=== PATIENT | male | born 1970 | race Caucasian/White ===

== ENCOUNTER → 2016-09-10 | Outpatient (CLI) | payer OTHER ==
[~2016-09-10] MED LIST: PERCOCET 325 MG1 TA3 PO; PHENERGAN 25MG.25 M1 PO
[2016-09-10 07:34] LABS: AEROMONAS NOT DETECTED (NOT DETECTE)
[2016-09-10 07:35] LABS: ASTROVIRUS NOT DETECTED (NOT DETECTE); CYCLOSPORA CAYETANENSIS NOT DETECTED (NOT DETECTE); E COLI O157 NOT DETECTED (NOT DETECTE); ENTEROAGGREGATIVE E COLI NOT DETECTED (NOT DETECTE); ENTEROPATHOGENIC E COLI NOT DETECTED (NOT DETECTE); ENTEROTOXIGENIC E COLI NOT DETECTED (NOT DETECTE); NOROVIRUS NOT DETECTED (NOT DETECTE); SHIGA-LIKE TOXIN PROD. E COLI NOT DETECTED (NOT DETECTE); SHIGELLA/ENTEROINVASIVE E COLI NOT DETECTED (NOT DETECTE); VIBRIO CHOLERAE NOT DETECTED (NOT DETECTE)
[2016-09-10 09:44] LABS: SAPOVIRUS DETECTED (NOT DETECTE)
== END ==
LOC: LAB 07:32
PROVIDERS: Internal Medicine
DX: K52.9 Noninfective gastroenteritis and colitis, unspecified (principal); R19.7 Diarrhea, unspecified

== ENCOUNTER → 2017-01-06 | Outpatient (CLI) | payer OTHER ==
--- NOTE | 2017-01-08 09:43 | RADIOLOGY REPORT PS360 ---
MRI-LOW EXT ANY JOINT W/O-LT MRI LEFT KNEE HISTORY: LEFT KNEE PAIN, LEFT KNEE EDEMA, KNEE STRAIN instability with bending past one year. Posterior knee pain. Tiny swallowing. Patient Age: 46 years: Male Ordering Physician: Sergio Gandara MD TECHNIQUE: Multiplanar multisequence imaging 1.5 MRI. COMPARISON :None FINDINGS Large joint effusion most evident at suprapatellar bursa. Bucket-handle LATERAL MENISCAL TEAR is most notable feature.. A very frayed and fragmented small residual posterior horn and posterior body. With prominent displaced meniscal fragment seen towards the notch, best seen on coronal image 18. Sagittal image 15. Borderline to mild chondral thinning at lateral femoral condyle. Medial meniscus tear . Suggestion of a subtle minimal horizontal tear involving the body and extending into the posterior horn of medial meniscus. Best seen on sagittal image 6 coronal image 18,19 and 20. Minor reactive bone changes reflecting early degenerative features along the medial margin medial tibial plateau. Borderline/mild chondral thinning.- Most evident towards the medial aspect of the medial compartment. Small subtle osteochondral signal irregularity focus at posterior aspect of medial femoral condyle also noted. ACL and PCL appear intact. Medial and lateral collateral ligaments appear intact A prominent irregularity at the tibial tubercle,; at the insertion of the patellar tendon. 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 I see no edema or distal features here currently.-Questionable be helpful here. No plain films available Patellofemoral joint appears intact. Cartilage along posterior patella appears intact. Satisfactory position of patella.. question possible plicae outlined by the large effusion suprapatella bursa region.-Equivocal. IMPRESSION...... 1. Prominent Lateral Meniscal Tear. Appears to be a large bucket-handle tear of lateral meniscus.; With small residual torn & fragmented posterior horn & posterior body medial meniscus 2. Minimal medial meniscal tear. Minimal Horizontal tear at the body and posterior horn 3. Very large joint effusion 4. Scant early degenerative changes most notable medial margin medial compartment . Borderline chondral thinning at medial and lateral compartment 5. 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 (. prominent low signal tissue here but no edema at this patellar tendon insertion region to suggest active process. Most likely old changes. Correlation with old versus recent plain film may be helpful in this regard, if patient tender here)
== END ==
LOC: RAD 15:50
DX: M25.562 Pain in left knee (principal); M25.462 Effusion, left knee

== ENCOUNTER → 2017-03-15 | Outpatient (CLI) | payer BC ==
[2017-03-15 13:09] LABS: HEMOGLOBIN 15.5 g/dL (14.1-18.0); LYMPH % 7.4 % (10-50)
[2017-03-15 14:30] LABS: BUN 18 mg/dL (7-18)
[2017-03-15 14:53] LABS: GFR (ESTIMATED) 65 ML/MIN (>60)
[2017-03-15 15:22] LABS: NEUTROPHILS 85 % (42-76)
== END ==
LOC: LAB 12:33
PROVIDERS: Orthopaedic Surgery
DX: Z96.652 Presence of left artificial knee joint (principal); L76.22 Postprocedural hemorrhage of skin and subcutaneous tissue following other procedure

== ENCOUNTER 2017-03-30 08:14 | Emergency (ER) | payer BC ==
[~2017-03-30] VITALS: Ht 185.4 cm; Wt 87.5 kg
--- OUTSIDE RECORDS SUMMARY | 2017-03-30 08:22 | External Medical Summary Rpt ---
Author Author [facility] Organization [facility] Address Unknown Phone Unavailable Care Team Providers Care Chief Controller Station Name Role Phone PADMAJA, (REF) PCP [phone] Encounter KRISTI FLORES [id number] Date(s): 03/13/17 - 03/14/17 [facility] [address] [place] [address]- [phone] Discharge Disposition: OP Self Care or Home Attending Physician: LANCE WINKLER MD-ORT Admitting Physician: LANCE WINKLER MD-ORT Referring Physician: LANCE WNIKLER MD-ORT Reason for Visit PAIN IN UNSPECIFIED KNEE Vital Signs Most recent 1 2 3 to oldest [Reference Range]: Temperature Temporal artery Temporal artery Temporal artery Source scanning (03/14/17 scanning (03/14/17 scanning (03/14/17 9:00 PM) 6:23 PM) 12:25 PM) Temperature Fahrenheit Fahrenheit Fahrenheit Mode (03/14/17 9:00 PM) (03/14/17 6:23 PM) (03/14/17 12:25 PM) Temperature, 98.0 Deg F 98.7 Deg F 98.5 Deg F Fahrenheit (03/14/17 9:00 PM) (03/14/17 6:23 PM) (03/14/17 12:25 [96.8-99.7 PM) Deg F] Clinical 36.7 Deg C 37.1 Deg C Temperature, (03/14/17 9:00 PM) (03/14/17 6:23 PM) C Pulse Rhythm Regular Regular (03/14/17 9:00 PM) (03/14/17 6:23 PM) Heart Rate, 85 bpm (03/14/17 Apical 12:25 PM) [60-100 bpm] Heart Rate 106 bpm 106 bpm 112 bpm Monitored *HI* *HI* *HI* [60-100 bpm] (03/14/17 9:00 PM) (03/14/17 8:45 PM) (03/14/17 8:30 PM) Respiratory 23 Breaths/Min 19 Breaths/Min 48 Breaths/Min Rate [14-20 *HI* (03/14/17 8:45 PM) *HI* Breaths/Min] (03/14/17 9:00 PM) (03/14/17 8:30 PM) Blood 144/90 mmHg 144/90 mmHg 161/93 mmHg Pressure *HI* *HI* *HI* [90-140/60-9 (03/14/17 9:00 PM) (03/14/17 8:45 PM) (03/14/17 8:30 PM) 0 mmHg] Mean 108 mmHg 108 mmHg 116 mmHg Arterial (03/14/17 9:00 PM) (03/14/17 8:45 PM) (03/14/17 8:30 PM) Pressure (MAP) Mean 111 111 110 Arterial (03/14/17 9:00 PM) (03/14/17 8:45 PM) (03/14/17 8:30 PM) Pressure (MAP)-BMDI Oxygen 95 % 94 % 96 % Saturation (03/14/17 9:00 PM) (03/14/17 8:45 PM) (03/14/17 8:30 PM) [94-100 %] Oxygen Room air Room air Room air Therapy Mode (03/14/17 9:00 PM) (03/14/17 8:45 PM) (03/14/17 8:30 PM) Oxygen Flow 2 Liter/Min 2 Liter/Min 2 Liter/Min Rate (03/14/17 6:30 PM) (03/14/17 6:25 PM) (03/14/17 6:23 PM) Height Stated (03/14/17 Source 12:47 PM) Height Entry [place] (03/14/17 Format 12:47 PM) Height/Lengt 74 Inch (03/14/17 h [place]AB[place] 12:47 PM) CLINICALHEIG 187.96 cm HT (03/14/17 12:47 PM) Weight Standing scale Standing scale Source (03/14/17 12:47 (03/14/17 12:26 PM) PM) Weight Entry [place] (03/14/17 [place] (03/14/17 Format 12:47 PM) 12:26 PM) Weight 191 lb (03/14/17 191 lb (03/14/17 [place] lb 12:47 PM) 12:26 PM) CLINICALWEIG 86.82 kg (03/14/17 86.82 kg (03/14/17 HT 12:47 PM) 12:26 PM) Body Surface 2.13 m2 (03/14/17 Area (BSA) 12:47 PM) Body Mass 24.6 kg/m2 Index [19-24 *HI*(03/14/17 kg/m2] 12:47 PM) [place] Body 81 kg (03/14/17 Weight 12:47 PM) Problem List Condition Effective Status Health Informant Dates Status HTN Active (hypertensio n)(Confirmed ) Allergies, Adverse Reactions, Alerts Substance Reaction Severity Status Percocet 10/325 Itching Active Medications amLODIPine (amLODIPine 10 mg oral tablet) 1 Tablet(s) Oral Every Day. Results BODY FLUID Most recent 1 2 to oldest [Reference Range]: Body Fluid Synovial Fl Synovial Fl Type (03/14/17 5:30 PM) (03/14/17 5:30 PM) Color BF Felicita *NA* (03/14/17 5:30 PM) Appearance Hazy BF (03/14/17 5:30 PM) Auto 1169 /uL WBC/Nucleate *HI* d Cells BF (03/14/17 5:30 PM) [0-1000 /uL] [place] [address] /uL [0-86555 *HI* /uL] (03/14/17 5:30 PM) Neutrophils 20 % Body Fluid *NA* (03/14/17 5:30 PM) Lymphocytes 23 % Body Fluid *LOW* [40-80 %] (03/14/17 5:30 PM) Monocytes 40 Body Fluid *NA* (03/14/17 5:30 PM) Macrophages 17 % Body Fluid *NA* (03/14/17 5:30 PM) Calcium Absent Pyrophosphat (03/14/17 5:30 PM) e Crystals [Absent] Crystal BF None Seen Other [None (03/14/17 5:30 PM) Seen] Monosodium Absent Urate (03/14/17 5:30 PM) Microbiology Reports TEST: Wound Culture STATUS: Order in Progress BODY SITE: Left Knee SOURCE: Surgical Swab COLLECTED DATE/TIME: 03/14/17 5:44 PMPRELIMINARY REPORTNo growthSTAIN REPORTNo organisms seen. No cells seen Immunizations No data available for this section Procedures Procedure Date Related Body Site Diagnosis Appendectomy colonoscopy exploratory laparoscopy left knee arthroscopy x 2 right wrist sx sinus surgery wisdom teeth extraction Social History Social History Response Type Smoking Status Never smoker Assessment and Plan No data available for this section Hospital Discharge Instructions Patient EducationKnee - Meniscus Injury, Arthroscopy, Care After
--- OUTSIDE RECORDS SUMMARY | 2017-03-30 08:22 | External Medical Summary Rpt ---
Author Author [facility] Organization [facility] Address Unknown Phone Unavailable Care Team Providers Care Drafter Engineering Name Role Phone SOL, (REF) PCP [phone] Encounter KRISTI FLORES [id number] Date(s): 02/17/17 - 02/17/17 [facility] [address] [place] [address]- Discharge Disposition: OP Self Care or Home Attending Physician: LANCE WINKLER MD-ORLillie Admitting Physician: LANCE WINKLER MD-ORLillie Referring Physician: LANCE WINKLER MD-ORLillie Reason for Visit CELLULITIS OF LEFT LOWER LIMB Vital Signs No data available for this section Problem List No data available for this section Allergies, Adverse Reactions, Alerts No data available for this section Medications No data available for this section Results BODY FLUID Most recent 1 2 to oldest [Reference Range]: Body Fluid Synovial Fl Synovial Fl Type (02/17/17 3:54 PM) (02/17/17 3:53 PM) Color BF Yellow (02/17/17 3:53 PM) Appearance Clear BF (02/17/17 3:53 PM) Auto 363 /uL WBC/Nucleate (02/17/17 3:53 PM) d Cells BF [0-1000 /uL] Auto RBC BF 2000 /uL [0-17274 (02/17/17 3:53 PM) /uL] Neutrophils 5 % Body Fluid *NA* (02/17/17 3:53 PM) Lymphocytes 49 % Body Fluid (02/17/17 3:53 PM) [40-80 %] Monocytes 46 Body Fluid *NA* (02/17/17 3:53 PM) Calcium Absent Pyrophosphat (02/17/17 3:54 PM) e Crystals [Absent] Monosodium Absent Urate (02/17/17 3:54 PM) Microbiology Reports TEST: Body Fluid Culture STATUS: Order in Progress BODY SITE: Left Knee SOURCE: Synovial Fluid COLLECTED DATE/TIME: 02/17/17 3:55 PMPRELIMINARY REPORTNo growthSTAIN REPORTNo organisms seen. Rare White Blood CellsTEST: Fungus Culture STATUS: Order in Progress BODY SITE: Knee SOURCE: Synovial Fluid COLLECTED DATE/TIME: 02/17/17 3:55 PMSTAIN REPORTNo Fungal elements seen Immunizations No data available for this section Procedures No data available for this section Social History No data available for this section Assessment and Plan No data available for this section Hospital Discharge Instructions No data available for this section
--- OUTSIDE RECORDS SUMMARY | 2017-03-30 08:22 | External Medical Summary Rpt ---
Author Author [facility]I [facility] Organization [facility] Address Unknown Phone Unavailable Care Team Providers Care Insurance Agent Name Role Phone SOL, (REF) PCP [phone] Encounter KRISTI FLORES [id number] Date(s): 02/17/17 - 02/17/17 [facility] [address] [place] [address]- [phone] Discharge Disposition: OP Self Care or Home [...] [0-1000 /uL] Auto RBC BF 2000 /uL [0-36652 (02/17/17 3:53 PM) /uL] Neutrophils 5 % [...]
--- OUTSIDE RECORDS SUMMARY | 2017-03-30 08:22 | External Medical Summary Rpt ---
Author Author [facility] Organization [facility] Address Unknown Phone Unavailable Care Team Providers Care Manager Chemical Name Role Phone PADMAJA, (REF) PCP [phone] Encounter KRISTI FLORES [id number] Date(s): 03/01/17 - 03/01/17 [facility] [address] [place] [address]- Discharge Disposition: OP Self Care or Home Attending Physician: LANCE WINKLER MD-ORLillie Admitting Physician: LANCE WINKLER MD-ORLillie Referring Physician: LANCE WINKLER MD-ORLillie Reason for Visit OTH TEAR OF MEDIAL MENISCUS, CURRENT INJURY, LEFT KNEE, INIT Vital Signs No data available for this section Problem List No data available for this section Allergies, Adverse Reactions, Alerts No data available for this section Medications No data available for this section Results GENERAL CHEMISTRY Most recent 1 to oldest [Reference Range]: Sodium Level 143 mmol/L [136-145 (03/01/17 10:06 AM) mmol/L] Potassium 3.3 mmol/L Level *LOW* [3.5-5.1 (03/01/17 10:06 AM) mmol/L] Chloride 103 mmol/L Level (03/01/17 10:06 AM) [98-107 mmol/L] Carbon 29 mmol/L Dioxide (03/01/17 10:06 AM) Level [21-32 mmol/L] Anion Gap 14 [9-20] (03/01/17 10:06 AM) Glucose 196 mg/dL Level *HI* [74-106 (03/01/17 10:06 AM) mg/dL] Blood Urea 8 mg/dL Nitrogen (03/01/17 10:06 AM) [7-18 mg/dL] Creatinine 1.00 mg/dL Level (03/01/17 10:06 AM) [0.70-1.30 mg/dL] eGFR 97 mL/min/1.73m2 [>=60 (03/01/17 10:06 AM) mL/min/1.73m 2] eGFR 80 mL/min/1.73m2 NonAfrican (03/01/17 10:06 AM) [>=60 mL/min/1.73m 2] Bun/Creatini 8.0 ne (03/01/17 10:06 AM) [8.0-20.0] Calcium 9.6 mg/dL Level (03/01/17 10:06 AM) [8.5-10.1 mg/dL] Protein 7.3 Gram/dL Total (03/01/17 10:06 AM) [6.4-8.5 Gram/dL] Albumin 4.1 Gram/dL Level (03/01/17 10:06 AM) [3.4-5.0 Gram/dL] Globulin 3.2 Gram/dL [1.5-4.5 (03/01/17 10:06 AM) Gram/dL] A/G Ratio 1.3 [1.1-2.5] (03/01/17 10:06 AM) Bilirubin 1.0 mg/dL Total (03/01/17 10:06 AM) [0.2-1.0 mg/dL] Alk Phos 93 Units/Liter [46-116 (03/01/17 10:06 AM) Units/Liter] AST [15-37 15 Units/Liter Units/Liter] (03/01/17 10:06 AM) ALT [16-63 28 Units/Liter Units/Liter] (03/01/17 10:06 AM) Hgb A1C 6.4 % [4.5-6.2 %] *HI* (03/01/17 10:06 AM) eAVG Glucose 137 mg/dL *NA* (03/01/17 10:06 AM) HEMATOLOGY Most recent 1 to oldest [Reference Range]: WBC 7.5 K/uL [3.9-10.0 (03/01/17 10:05 AM) K/uL] RBC 4.91 Million/uL [4.63-6.08 (03/01/17 10:05 AM) Million/uL] Hgb 14.8 Gram/dL [13.7-17.5 (03/01/17 10:05 AM) Gram/dL] Hct 41.2 % [40.1-51.0 (03/01/17 10:05 AM) %] MCV 83.9 fL [79.0-94.8 (03/01/17 10:05 AM) fL] MCH 30.1 pg [25.6-32.2 (03/01/17 10:05 AM) pg] MCHC 35.9 Gram/dL [32.2-36.5 (03/01/17 10:05 AM) Gram/dL] Platelet 350 K/uL Count (03/01/17 10:05 AM) [163-369 K/uL] MPV 8.9 fL [9.4-12.4 *LOW* fL] (03/01/17 10:05 AM) RDW 12.2 % [11.6-14.4 (03/01/17 10:05 AM) %] Neut % 62.5 % [34.0-71.0 (03/01/17 10:05 AM) %] Neut # 4.68 K/uL [1.56-6.13 (03/01/17 10:05 AM) K/uL] Lymph % 25.2 % [19.0-53.0 (03/01/17 10:05 AM) %] Lymph # 1.89 K/uL [1.18-3.74 (03/01/17 10:05 AM) K/uL] [place] % 10.3 % [4.7-12.5 %] (03/01/17 10:05 AM) [place] # 0.77 K/uL [0.24-0.82 (03/01/17 10:05 AM) K/uL] Eos % 1.5 % [1.0-7.0 %] (03/01/17 10:05 AM) Eos # 0.11 K/uL [0.04-0.54 (03/01/17 10:05 AM) K/uL] Baso % 0.5 % [0.0-1.0 %] (03/01/17 10:05 AM) Baso # 0.04 K/uL [0.01-0.08 (03/01/17 10:05 AM) K/uL] Slide Review No (03/01/17 10:05 AM) URINALYSIS Most recent 1 to oldest [Reference Range]: Urine Type U CleanCatch (03/01/17 10:06 AM) Urine Color Yellow *NA* (03/01/17 10:06 AM) Urine Clear Appearance (03/01/17 10:06 AM) Urine 1.021 Specific (03/01/17 10:06 AM) [place] [1.005-1.030 ] Urine pH 6.5 Dipstick (03/01/17 10:06 AM) [6.0-8.0] Urine Negative Leukocyte (03/01/17 10:06 AM) Esterase [Negative] Urine Negative Nitrite (03/01/17 10:06 AM) [Negative] Urine Negative Protein (03/01/17 10:06 AM) Dipstick [Negative] Urine >=1000 Glucose *ABN* Dipstick (03/01/17 10:06 AM) [Negative] Urine Negative Ketones (03/01/17 10:06 AM) Dipstick [Negative] Urine 1.0 EU/dL Urobilinogen *ABN* Dipstick (03/01/17 10:06 AM) [0.2-1.0 EU/dL] Urine Negative Bilirubin (03/01/17 10:06 AM) Dipstick [Negative] Urine Blood Negative Dipstick (03/01/17 10:06 AM) [Negative] Immunizations No data available for this section Procedures No data available for this section Social History No data available for this section Assessment and Plan No data available for this section Hospital Discharge Instructions No data available for this section
--- OUTSIDE RECORDS SUMMARY | 2017-03-30 08:22 | External Medical Summary Rpt ---
Author Author [facility] Organization [facility] Address Unknown Phone Unavailable Care Team Providers Care Chemical Inspector Name Role Phone PADMAJA, (REF) PCP [phone] Encounter KRISTI FLORES [id number] Date(s): 03/13/17 - 03/14/17 [facility] [address] [place] [address]- Discharge Disposition: OP Self Care or Home Attending Physician: LANCE WINKLER MD-ORT Admitting Physician: ALNCE WINKLER MD-ORT Referring Physician: LANCE WINKLER MD-ORT Reason for Visit PAIN IN UNSPECIFIED [...] Stated (03/14/17 Source 12:47 PM) Height Entry [place] (03/14/17 Format 12:47 PM) Height/Lengt 74 Inch (03/14/17 h [place]APAN[place] 12:47 PM) CLINICALHEIG 187.96 cm HT (03/14/17 12:47 PM) Weight Standing scale Standing scale Source (03/14/17 12:47 (03/14/17 12:26 PM) PM) Weight Entry [place] (03/14/17 [place] (03/14/17 Format 12:47 PM) 12:26 PM) Weight 191 lb (03/14/17 191 lb (03/14/17 [place] lb 12:47 PM) 12:26 PM) CLINICALWEIG 86.82 kg (03/14/17 86.82 kg (03/14/17 HT 12:47 PM) 12:26 PM) Body Surface 2.13 m2 (03/14/17 Area (BSA) 12:47 PM) Body Mass 24.6 kg/m2 Index [19-24 *HI*(03/14/17 kg/m2] 12:47 PM) [place] Body 81 kg (03/14/17 Weight 12:47 PM) [...] 5:30 PM) [0-1000 /uL] [place] [address] /uL [0-51997 *HI* /uL] (03/14/17 5:30 PM) Neutrophils 20 [...]
--- OUTSIDE RECORDS SUMMARY | 2017-03-30 08:22 | External Medical Summary Rpt ---
Author Author [facility] Organization [facility] Address Unknown Phone Unavailable Care Team Providers Care Blue Line Trimmer Name Role Phone PADMAJA, (REF) PCP [phone] Encounter KRISTI FLORES [id number] Date(s): 03/01/17 - 03/01/17 [facility] [address] [place] [address]- Discharge Disposition: OP Self Care or Home [...] 1.89 K/uL [1.18-3.74 (03/01/17 10:05 AM) K/uL] [place] % 10.3 % [4.7-12.5 %] (03/01/17 10:05 AM) [place] # 0.77 K/uL [0.24-0.82 (03/01/17 10:05 AM) [...] AM) Urine 1.021 Specific (03/01/17 10:06 AM) [place] [1.005-1.030 ] Urine pH 6.5 Dipstick (03/01/17 [...]
--- OUTSIDE RECORDS SUMMARY | 2017-03-30 08:23 | External Medical Summary Rpt | CCD ---
Author Author [facility] Address Unknown Phone Unavailable Purpose Continuity of Care Document - through 2016
--- OUTSIDE RECORDS SUMMARY | 2017-03-30 08:23 | External Medical Summary Rpt | CCD ---
Demographics Preferred Language Ukrainian Marital Status Unknown Adventist Affiliation Unknown Race Unknown Ethnic Group Unknown Author Author , AMANDA PATEL Address Unknown Phone Immunization Unable to retrieve immunization data due to connection failure with Immunization Registry. Please try again later.
--- OUTSIDE RECORDS SUMMARY | 2017-03-30 08:23 | External Medical Summary Rpt ---
Author Author [facility] [employer], [facility] Organization [facility] Address Unknown Phone Unavailable Results CBC W Auto Differential panel in Blood Observa Value Referen Units Interpr Notes Date tion ce etation Range Basophils 0 - 0.2 K/MM3 Normal No Mar 152016 [#/volume on in 12:36 PM ] in source Blood by data Automated count Basophils 0.1 - 2.0 % Normal No Mar 15 /2016 leukocyte on in 12:36 PM s in source Blood by data Automated count Eosinophi 0.0 - 0.4 K/mm3 Normal No Mar 15 ls 2016 [#/volume on in 12:36 PM ] in source Blood by data Automated count Eosinophi 0.1 - % Normal No Mar 15 ls/100 12.0 2016 leukocyte on in 12:36 PM s in source Blood by data Automated count Granulocy 1.3 - 8.0 K/mm3 High No Mar 15 cong 2016 [#/volume on in 12:36 PM ] in source Blood by data Automated count Granulocy 37.0 - % High No Mar 15 cong/100 80.0 2016 leukocyte on in 12:36 PM s in source Blood by data Automated count Hematocri 42.0 - % Normal No Mar 15 t [Volume 52.0 2016 on in 12:36 PM Fraction] source of Blood data Hemoglobi 14.1 - g/dL Normal No Mar 15 n 18.0 2016 [Mass/vol on in 12:36 PM ume] in source Blood data Lymphocyt 0.7 - 4.5 K/mm3 Normal No Mar 15 es 2016 [#/volume on in 12:36 PM ] in source Unspecifi data ed specimen by Automated count Lymphocyt 10 - 50 % Low No Mar 15 es 2016 [#/volume on in 12:36 PM ] in source Unspecifi data ed specimen by Automated count Erythrocy 27 - 31.2 pg Normal No Mar 15 te mean 2016 corpuscul on in 12:36 PM ar source hemoglobi data n [Entitic mass] Erythrocy 31.8 - g/dl Normal No Mar 15 te mean 35.4 2016 corpuscul on in 12:36 PM ar source hemoglobi data n concentra tion [Mass/vol ume] by Automated count Erythrocy 82.2 - fl Normal No Mar 8 te mean 97.8 2016 corpuscul on in 12:36 PM ar volume source [Entitic data volume] by Automated count Monocytes 0.1 - 1.0 K/mm3 Normal No Mar 8 2016 [#/volume on in 12:36 PM ] in source Blood by data Automated count Monocytes 1.7 - 9.3 % Normal No Mar 152016 leukocyte on in 12:36 PM s in source Blood by data Automated count Platelet 7.4 - fl Low No Mar 15 mean 10.4 2016 volume on in 12:36 PM [Entitic source volume] data in Blood by Automated count Platelets 142 - 424 K/mm3 High No Mar 152016 [#/volume on in 12:36 PM ] in source Blood data Erythrocy 4.6 - 6.2 M/mm3 Normal No Mar 8 cong 2016 [#/volume on in 12:36 PM ] in source Amniotic data fluid Erythrocy 11.5 - % Normal No Mar 8 te 17.5 2016 distribut on in 12:36 PM ion width source [Entitic data volume] by Automated count Leukocyte 4.8 - K/MM3 High No Mar 8 s 10.8 2016 [#/volume on in 12:36 PM ] in source Blood data Differential panel, method unspecified - Observa Value Referen Units Interpr Notes Date tion ce etation Range Neutrophi 0 - 8 % Normal No Mar 15 ls.band 2017 form/100 on in 12:36 PM leukocyte source s in data Blood by Automated count LYMPH 8 10 - 50 % Low No Mar 152016 tion in 12:36 source PM data Metamyelo 0 - 1 % Normal No Mar 8 cytes/100 2016 on in 12:36 PM leukocyte source s in data Blood by Manual count Monocytes 2 - 9 % Normal No Mar 15 /100 2016 leukocyte on in 12:36 PM s in source Blood by data Automated count Platele MOD No No No No Nov 8 ts INCREAS informa informa informa informa 2017 [Presen E tion in tion in tion in tion in 12:36 ce] in source source source source PM Blood data data data data by Light microsc opy Neutrophi 42 - 76 % High No Mar 15 ls informati 2016 [#/volume on in 12:36 PM ] in source Blood by data Automated count Cells No #CELLS No No Mar 15 Counted informati informati informati 2016 Total [#] on in on in on in 12:36 PM in Blood source source source data data data Basic metabolic panel in Blood Observa Value Referen Units Interpr Notes Date tion ce etation Range Urea 7 - 18 mg/dL Normal No Mar 15 nitrogen informati 2016 [Mass/vol on in 12:36 PM ume] in source Serum or data Plasma Calcium 8.5 - mg/dL Normal No Mar 15 [Mass/vol 10.1 informati 2016 ume] in on in 12:36 PM Serum or source Plasma data Chloride 98 - 107 mmoL/L Normal No Mar 15 [Moles/vo informati 2016 lume] in on in 12:36 PM Serum or source Plasma data Carbon 21.0 - mmoL/L Normal No Mar 15 dioxide, 32.0 informati 2016 total on in 12:36 PM [Moles/vo source lume] in data Serum or Plasma Creatinin 0.70 - mg/dL Normal No Mar 15 e 1.30 informati 2016 [Mass/vol on in 12:36 PM ume] in source Serum or data Plasma Estimated >60 ML/MIN No REFERENCE Mar 15 informati RANGE: 2017 glomerula on in >60 12:36 PM r source ML/MIN/1. filtratio data 73 SQUARE n rate METERSIf (GF this patient is -A merican, then multiply theresult by 1.210. Glucose 74 - 106 mg/dL High No Mar 15 [Mass/vol informati 2016 ume] in on in 12:36 PM Serum or source Plasma data Potassium 3.5 - 5.1 mmoL/L Normal No Mar 15 inform2016 [Moles/vo on in 12:36 PM lume] in source Serum or data Plasma Sodium 136 - 145 mmoL/L Normal No Mar 15 [Moles/vo informati 2016 lume] in on in 12:36 PM Serum or source Plasma data INR in Blood by Coagulation assay Observa Value Referen Units Interpr Notes Date tion ce etation Range INR in 0.9 - 1.1 No Normal INDICATIO Mar 15 Blood by informati N 2017 Coagulati on in 12:36 PM on assay source INR data RANGETHER APY FOR DVT, PE, ATRIAL FIB; 2.0 - 3.0PROPHY LAXIS FOR VTETHERAP Y FOR MECHANICA L HEART 2.5 - 3.5VALVE; PREVENTIO N OF SYSTEMICE MBOLISM SECONDARY TO AMI Prothromb 9.4 - SECONDS Normal No Mar 15 in time 11.8 informati 2017 (PT) in on in 12:36 PM Platelet source poor data plasma by Coagulati on assay
--- OUTSIDE RECORDS SUMMARY | 2017-03-30 08:23 | External Medical Summary Rpt | CCD ---
Demographics Preferred Language Slovenian Marital Status Unknown Mormon Affiliation Unknown Race Unknown Ethnic Group Unknown Author Author , AMANDA PATEL Address Unknown Phone Immunization Unable to retrieve immunization data due to connection failure with Immunization Registry. Please try again later.
--- OUTSIDE RECORDS SUMMARY | 2017-03-30 08:23 | External Medical Summary Rpt | CCD ---
Author Author , AMANDA PATEL Address Unknown Phone [email or web address] Purpose Continuity of Care Document - 03-15-2017 through 2016 Results Labs Lab Lab Date Result Refere Interp Status Commen Order Detail nces retati t Range on Differential panel, method unspecified - (03-15-2017 12:36) Blood = 100 complet total 017 #CELLS ed cell 12:36 count Neutrop = 85 % 42-76 complet hil 017 ed count 12:36 Platele MOD complet t 017 INCREAS ed estimat 12:36 E MOD e INCREAS E L Monocyt = 5 % 2-9 complet e % 017 ed 12:36 Manual = 1 % 0-1 complet blood 017 ed metamye 12:36 locytes /100 leukocy t LYMPH 8 % 10-50 complet 017 ed 12:36 Automat = 1 % 0-8 complet ed 017 ed blood 12:36 band neutrop hil percent a CBC w auto diff (03-15-2017 12:36) Blood = 11.9 1.3-8.0 complet granulo 017 K/mm3 ed cytes 12:36 automat ed count (numb Automat = 0.2 % 0.1-12. complet ed 017 0 ed blood 12:36 eosinop hils/10 0 leukocy t Automat = 0.0 0.0-0.4 complet ed 017 K/mm3 ed blood 12:36 eosinop hil count Automat = 0.0 0-0.2 complet ed 017 K/MM3 ed blood 12:36 basophi l count (count/ vo Baso % = 0.1 % 0.1-2.0 complet 017 ed 12:36 Blood = 13.9 4.8-10. complet leukocy 017 K/MM3 8 ed cong 12:36 count (number /volume ) Automat = 12.2 11.5-17 complet ed 017 % .5 ed erythro 12:36 cyte distrib ution width Red = 5.27 4.6-6.2 complet blood 017 M/mm3 ed cell 12:36 count Blood = 442 142-424 complet platele 017 K/mm3 ed t count 12:36 Automat = 6.7 7.4-10. complet ed 017 fl 4 ed blood 12:36 platele t mean volume ernesto [place] % = 6.7 % 1.7-9.3 complet 017 ed 12:36 Absolut = 0.9 0.1-1.0 complet e 017 K/mm3 ed monocyt 12:36 e count Automat = 85.8 82.2-97 complet ed 017 fl .8 ed erythro 12:36 cyte mean corpusc ular v Automat = 34.3 31.8-35 complet ed 017 g/dl .4 ed erythro 12:36 cyte mean corpusc ular h Mean = 29.4 27-31.2 complet corpusc 017 pg ed ular 12:36 hemoglo bin (MCH) determ Lymphoc = 7.4 % 10-50 complet yte 017 ed count, 12:36 blood, automat ed Absolut = 1.0 0.7-4.5 complet e 017 K/mm3 ed lymphoc 12:36 yte count Blood = 15.5 14.1-18 complet hemoglo 017 g/dL .0 ed bin 12:36 measure ment (mass/v olum Blood = 45.2 42.0-52 complet hematoc 017 % .0 ed rit 12:36 (volume fractio n) Granulo = 85.5 37.0-80 complet cyte 017 % .0 ed percent 12:36 age Basic metabolic panel (03-15-2017 12:36) Serum = 139 136-145 complet sodium 017 mmoL/L ed measure 12:36 ment Serum = 3.9 3.5-5.1 complet potassi 017 mmoL/L ed um 12:36 measure ment Serum = 293 74-106 complet or 017 mg/dL ed plasma 12:36 glucose measure ment (mas Estimat = 65 >60 complet ed 017 ML/MIN ed glomeru 12:36 lar filtrat ion rate (GF Comment: REFERENCE RANGE: >60 ML/MIN/1.73 SQUARE METERS Comment: If this patient is -Haitian, then multiply the Comment: result by 1.210. Serum = 1.2 0.70-1. complet or 017 mg/dL 30 ed plasma 12:36 creatin ine measure ment ( Carbon = 23 21.0-32 complet dioxide 017 mmoL/L .0 ed 12:36 measure ment Serum = 101 98-107 complet or 017 mmoL/L ed plasma 12:36 chlorid e measure ment (mo Serum = 9.9 8.5-10. complet or 017 mg/dL 1 ed plasma 12:36 calcium measure ment (mas Serum = 18 7-18 complet or 017 mg/dL ed plasma 12:36 urea nitroge n measure men Differential panel, method unspecified - (03-15-2017 12:36) LYMPH 8 % 10% - Low complet 017 50% ed 12:36 Platele MOD complet ts 017 INCREAS ed [Presen 12:36 E ce] in Blood by Light microsc opy
--- OUTSIDE RECORDS SUMMARY | 2017-03-30 08:23 | External Medical Summary Rpt | CCD ---
Author Author , AMANDA PATEL Address Unknown Phone [email or web address] Purpose Continuity of Care Document - 03-15-2017 [...] blood 12:36 platele t mean volume ernesto [place] % = 6.7 % 1.7-9.3 complet 017 [...] SQUARE METERS Comment: If this patient is -Turkish, then multiply the Comment: result by 1.210. [...]
[2017-03-30] MEDS ORDERED: PERCOCET 325 MG1 TA4 PO (08:39)
[2017-03-30 08:44] LABS: HEMOGLOBIN 15.3 g/dL (14.1-18.0); LYMPH # 2.1 K/mm3 (0.7-4.5); LYMPH % 18.2 % (10-50)
--- NOTE | 2017-03-30 09:35 | Emergency Room Report ---
History of Present Illness Time Seen by [id number] Presenting Problem in Triage Pt arrived:Walked Presenting Problem:PT ADVISES THAT APPROX 0530 HE WOKE UP NAUSEAS, LIGHTHEADED, AND FEELING IF HE IS GOING TO PASS OUT Onset of symptoms date/time:/ or onset unknown for:MEDICAL HX UNKNOWN Treatment Prior to Arrival: [employer] Provided by: Sepsis Risk Assessment: Temp: 98.4 B/P: 159/89 MAP: 112 Pulse: 73 Resp: 18 Recent fever? N Clinical Suspician of Infection? N Mental Status: 1 - Regular (Normal Baseline) Sepsis Risk:Low Sepsis Risk Have you (or family members/close friends) recently traveled outside the [place]? N If Yes, where/when: Have you had exposure to infectious disease within the past month? N TB? Other? Specify: 46 years old white male who is on his fourth postoperative course for LEFT knee arthroscopic surgery. He continues to have hemarthrosis. He had LEFT knee tapping done yesterday. He used 2 Percocets at midnight. Woke up at 4:30 with pain when he took another Percocet at 5:30 AM. 30 minutes later he felt stomach cramp associated with a head tavarez and dizziness. He denies having chest pain shortness of breath or palpitations. He did not take his blood pressure medicine this morning. He denies fever or chills nausea or vomiting. His his stomach still does not feel well. He had no vomiting or diarrhea. Source patient, RN notes reviewed, family, He is related to Mary Castillo RN who verified and confirmed th e above history. ALLERGIES Coded Allergies: hydrocodone (Mild, 03/30/17) Uncoded Allergies: TRANSPORE TAPE (I-RASH 04/15/14) Home Medications Active Scripts Promethazine Hydrochloride (Phenergan 25MG Tab) 25 MG PO Q4-6H PRN #20 Prov: 01/23/10 Reported Medications OXYCODONE HCL/ACETAMINOPHEN (Percocet 7.5-325 MG Tablet) 1 TAB PO Q4HP PRN PAIN History Medical History General CAD? No Angina: No UT: No Hypertension? Yes Hyperlipidemia? No CHF? No DVT? No PE? No COPD? No Asthma? No Anemia? No GERD? No Gastric ulcers? No GI Bleed? No Hernia? No Thyroid Problems? No Hypothyroidism? No CVA? No Seizures? No Diabetes? No Renal Insuffiency? No End Stage Renal Disease? No UTI? No Stones? No BPH? No GB Disease: No Nephritic Syndrome? No Asplenia? No Hepatitis? No Sickle Cell Disease? No Arthritis? No Migraines? No Cataracts? No Glaucoma? No MRSA? No HIV? No TB? No Anxiety? No Depression? No Cancer? No More? No Immunization Hx DT/Tetanus 5-10 Years Ago Flu [id number] Flu Season Pneumonia Refuses Surgical Hx Previous Surgery?Y NASAL WRIST KNEE EXPLORATORY ABD APPENDECTOMY Family History Family Hx Diabetes Yes CAD No Hypertension Yes Hyperlipidemia Yes Cancer No TB No Social History Smoking Hx Smoker: Never Smoker Tobacco: No Alcohol Alcohol: No Review of Systems All Other Systems Reviewed and Negative Constitutional see HPI (had tavarez and dizziness) Eyes no symptoms reported ENT no symptoms reported. Respiratory no symptoms reported Cardiovascular no symptoms reported Gastrointestinal see HPI, abdominal pain (crampy stomach) Genitourinary no symptoms reported. Musculoskeletal no symptoms reported Skin no symptoms reported Psychiatric/Neurological no symptoms reported Physical Exam Vital Signs Vital Signs Date Time Temp Pulse Resp B/P Pulse O2 O2 Flow FiO2 Ox Delivery Rate 03/30 1023 85 14 124/75 94 03/30 0822 98.4 73 18 159/89 98 - WBC >12,000 or <4,000 or 10% bands? 2 or more SIRS Criteria Met? B/P:159/89 MAP:112 Creatinine >2.0? UA output<0.5ml/kg/hr for 2 hrs? Platelet count >100,000? Lactate >2.0mmol/1? INR >1.2 or PTT > than 60 sec? Evidence of Organ Dysfunction? Provider documented clinical suspician of infection? N Sepsis Criteria Count: 0 Sepsis Risk: Low Sepsis Risk General Appearance normal appearance, WD/WN, no apparent distress Eye Exam - bilateral eye normal exam, bilateral eye PERRL, bilateral eye EOMI Ear, Nose, Throat hearing grossly normal, normal ENT inspection Neck normal inspection, non-tender, supple, full range of motion Respiratory Status Yes: trachea midline, chest symmetrical, non tender chest. No: respiratory distress. Lung Sounds bilateral: normal breath sounds, lungs clear. Cardiovascular normal exam, regular rate/rhythm, no peripheral edema, no gallop, no JVD, no murmur, no rub, normal peripheral pulses Peripheral Pulses Pulses normal Yes Gastrointestinal normal bowel sounds, normal exam, soft, no organomegaly, mild epigastric tenderness without guarding or rigidity, there is no rebound or cross tenderness, no pulsatile masses. Back normal inspection, no CVA tenderness, no vertebral tenderness Male Genitalia normal genitalia, normal prostate, no hernia Neurologic alert, healthcare technician II-XII nml as tested, normal exam, oriented x 3 Reflexes Reflexes normal Yes Mental status normal mood/affect Skin intact, normal color, warm/dry Lymphatic inguinal node tender (L) Medical Decision Making LABS/Meds/Orders Pt receiving controlled substance in ED? No Results/Orders Laboratory Tests 03/30/17 0835: Troponin I < 0.02 03/30/17 0835: Sodium 141, Potassium 3.2 L, Chloride 103, Carbon Dioxide 28, BUN 13, Creatinine 0.9, Estimated Creat Clear 126, Estimated GFR (MDRD) 90, Glucose 266 H, Calcium 8.5, Total Bilirubin 0.9, AST 18, ALT 34, Alkaline Phosphatase 102, Total Protein 7.5, Albumin 4.0, Globulin 3.5 H, Albumin/Globulin Ratio 1.1, D- Dimer 348, WBC 11.4 H, RBC 5.33, Hgb 15.3, Hct 44.6, MCV 83.7, RDW 12.0, Plt Count 415, MPV 6.3 L, Gran % 74.2, Gran # 8.4 H, Lymphocytes % 18.2, Monocytes % 6.2, Eosinophils % 0.9, Basophils % 0.6, Lymphocytes # 2.1, Monocytes # 0.7, Eosinophils # 0.1, Basophils # 0.1, PUBS MCHC 34.4, MCH 28.8 03/30/17 0821: POC Glucose 261 H Current Medication Orders Sig/Kirstin Start time Last Medication Dose Route Stop Time Status Admin Famotidine 0 .STK-MED ONE 03/30 1038 DC IV Potassium Chloride 0 .STK-MED ONE 03/30 1037 DC PO Famotidine 20 MG ONCE ONE 03/30 1030 DC 03/30 IV 03/30 1031 1040 Potassium Chloride 20 MEQ ONCE ONE 03/30 1030 DC 03/30 PO 03/30 1031 1040 Sodium Chloride 8 ML ONCE ONE 03/30 1030 DC 03/30 IV 03/30 1031 1041 Amlodipine Besylate 10 MG ONCE ONE 03/30 0930 DC 03/30 PO 03/30 Hydrochlorothiazide 12.5 MG ONCE ONE 03/30 930 CAN PO 03/30 931 Hydrochlorothiazide 25 MG ONCE ONE 03/30 930 DC 03/30 PO 03/30 931 09 Hydrochlorothiazide 0 .STK-MED ONE 03/30 927 DC 03/30 PO 0945 Amlodipine Besylate 0 .STK-MED ONE 03/30 923 DC .ROUTE Sodium Chloride 1,000 ML .STK-MED ONE 03/30 841 DC IV Ondansetron HCl 4 MG ONCE ONE 03/30 830 DC 03/30 SL 03/30 831 0843 Sodium Chloride 10 ML PRN PRN 03/30 830 AC IV 03/31 08 Sodium Chloride 1,000 ML .Q1H1M 03/30 830 DC 03/30 IV 03/30 930 0843 Sodium Chloride 10 ML PRN PRN 03/30 830 AC IV 03/31 830 Ondansetron HCl 0 .STK-MED ONE 03/30 829 DC .ROUTE Orders Procedure Date/time Status D-DIMER 03/30 918 Complete ELECTROCARDIOGRAM REQUEST 03/30 844 Active TROPONIN I 03/30 844 Complete ABD ACUTE(MUL VIEWS) 03/30 830 Active IV SALINE LOCK 03/30 830 Active CBC WITH AUTO DIFF 03/30 830 Complete CHEM 12 PROFILE 03/30 830 Complete FSBS REQUEST BY CARE AREA 03/30 826 Active FINGERSTICK BLOOD SUGAR 03/30 821 Complete CM/EKG CM/EKG Comments Sinus bradycardia. normal. QRS and T waves no acute findings Departure Departure Time of Disposition 945 Disposition DC Home or Self Care(routine) Clinical Impression Primary Impression: Drug-induced dyspepsia Secondary Impressions: Diabetes 1.5, managed as type 2, Hemarthrosis, Inguinal adenopathy, Medication side effect, S/P left knee arthroscopy Condition STABLE Referrals Juliocesar GOTTI,Sergio Cordero (Family) Additional Instructions The patient felt better after nausea medications and taking his BP medications. We discussed his labs and need for HGB A1C and inguinal LN recheck by his pcp Dr Gandara. He admitted being aware of elevated blood sugar and it runs in his family. I warned him that DM will delay his wound healing and makes him prone to infection. He verbalized understanding. To return if needed Zantac Mobic follow up with Dr Gandara F/u with orthopedic of his choice. Discharge Counseling Counseled pt/family regarding diagnosis, test results, medications/RX, home care, follow up needs Prescriptions Current Visit Scripts Ranitidine Hcl (Zantac) 150 MG PO BID #30 TAB Ref 1 Meloxicam (Mobic 7.5MG) 7.5 MG PO BID #14 TAB Ref 1 ED Critical Care Critical Care No If Critical Care minutes are documented, the time involved in the performance of seperately reportable procedures was not counted toward critical care time documented. I directly delivered medical care to this critically ill and/or injured patient. Timely evaluation and treatment was necessary to address the significant organ system(s) dysfunction present in this patient. at 1042
[2017-03-30] MEDS ORDERED: MOBIC7.5 MG PO (10:42)
[2017-03-30] MEDS ORDERED: ZANTAC 150150 MG PO (10:42)
[2017-03-30 10:48] VITALS: BP 124/75
--- NOTE | 2017-03-30 12:02 | RADIOLOGY REPORT PS360 ---
ABD ACUTE(MUL VIEWS) COMPARISON: PA and lateral chest 10/07/2008 HISTORY: Sudden onset of nausea and abdominal pain TECHNIQUE: PA chest, KUB and upright abdomen FINDINGS: The lung hi are well expanded and appear clear of infiltrate. The cardiac silhouette and vascularity are normal. There are small calcified left hilar nodes. There is minor dextroscoliotic curvature of the thoracic spine. Abdominal films show a few mildly dilated loops of distal small bowel. Is minimal stool in ascending colon. There are no abnormal soft tissue shadows and there is no free air. IMPRESSION: 1 negative chest 2. Mildly abnormal bowel gas pattern possibly due to mild degree of enteritis, there are no findings of obstruction
== END 2017-03-30 10:49 | disposition home or self-care (01) ==
LOC: ER 08:14
PROVIDERS: Emergency Medicine
DX: T40.2X5A Adverse effect of other opioids, initial encounter (principal); R10.13 Epigastric pain; E11.9 Type 2 diabetes mellitus without complications; M25.00 Hemarthrosis, unspecified joint